=== PATIENT | female | born 1995 | race African-American/Black ===

== ENCOUNTER 2019-05-03 17:03 | Outpatient (CLI) | payer MEDICAID ==
--- NOTE | 2019-05-03 18:07 | Non Stress Test Report ---
Non Stress Test Datetime Report Generated by CPN: 05/03/2019 18:07 DEMOGRAPHIC EGA NST: 34.5 INDICATION Indication for Study: Ordered by Provider MONITORING Monitor Explained: Monitor Explained; Test Explained; Patient Verbalized Understanding Time on Monitor: 05/03/2019 17:34 Time off Monitor: 05/03/2019 17:55 NST Duration: 21 NST INTERVENTIONS NST Interventions: PO Hydration Physician Notified NST: Dr Ethan BABY A: [id number] BABY A Movement : Present Contraction Frequency : 0 FHR Baseline : 125 Accelerations : 15X15 Decelerations : None Variability : Moderate 6-25bpm NST Review: Meets Criteria for Reactive NST NST Review and Verified By : WAN Gómez Results: Reactive NST REPORT Report Trigger: Send Report
== END 2019-05-03 18:01 | disposition home or self-care (01) ==
LOC: LC 17:03
PROVIDERS: ATTEND Obstetrics & Gynecology
PROC: 4A1HXCZ Monitoring of Products of Conception, Cardiac Rate, External Approach (ICD-10-PCS; principal; 2019-05-03)
DX: O16.3 Unspecified maternal hypertension, third trimester (principal); Z3A.34 34 weeks gestation of pregnancy
CPT/HCPCS: 59025

== ENCOUNTER 2019-05-10 17:20 | Outpatient (CLI) | payer MEDICAID | END 2019-05-10 17:52 | disposition home or self-care (01) | LOC: LC 17:20 | PROVIDERS: ATTEND Obstetrics & Gynecology | PROC: 4A1HXCZ Monitoring of Products of Conception, Cardiac Rate, External Approach (ICD-10-PCS; principal; 2019-05-10) | DX: Z34.83 Encounter for supervision of other normal pregnancy, third trimester (principal) | CPT/HCPCS: 59025 ==